=== PATIENT | male | born 2005 | race Caucasian/White ===

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

== ENCOUNTER 2023-04-07 12:35 | Emergency (ER) | payer OTHER, SELFPAY ==
--- NOTE | ~2023-04-07 | CT_ITS ---
EXAMINATION: CT abdomen pelvis w con DATE: 04/07/2023 14:15 INDICATION: Right upper quadrant pain status post trauma. TECHNIQUE: Computed tomography (CT) of the abdomen and pelvis was performed with 100 cc Omnipaque 350 intravenous contrast. The dose-length product was 261.47 mGy-cm. Automated exposure control and iter ative reconstruction technique were employed. COMPARISON: None. FINDINGS: Lung bases are unremarkable. Heart size normal. No significant pleural or pericardial effus ion. The liver, spleen, pancreas, adrenal glands and kidneys are unremarkable. No bladder is present. No significant vascular abnormality. There is a retroaortic left renal vein. No evidence for aortic aneurysm or dissection. Nonobstructive bowel gas pattern. No evidence for appendicitis. Small amount of free fluid in the pelvis. Gallbladder is present. No free air. No acute osseous abnormality. IMPRESSION: 1. No acute abdominal abnormality. Reviewed, dictated and finalized at location A. [employer] IN[employer]GR[employer]
[2023-04-07 12:42] VITALS: BP 134/56; PULSE 92; RESP 17; TEMP 36.7; O2SAT 100
[2023-04-07 12:55] LABS: Basophils Percent Auto 0.3 % (0.2-1.2); Eosinophils Absolute Auto 0.1 K/mm3 (0-0.3); Eosinophils Percent Auto 0.9 % (0-4.4); Hematocrit 45.3 % (42.0-52.0); Hemoglobin 14.8 g/dL (14.0-18.0); Immature Granulocyte Absolute 0.02 K/mm3 (0.00-0.031); Immature Granulocyte Percent A 0.2 % (0-0.5); Lymphocytes Absolute Auto 2.71 K/mm3 (0.9-3.2); Lymphocytes Percent Auto 28.9 % (18.3-44.2); Mean Corpuscular HGB Conc 32.7 g/dl (32-36); Mean Corpuscular Hemoglobin 28.3 pg (26-34); Mean Corpuscular Volume 86.6 fl (80-100); Mean Platelet Volume 10.6 fl (7.4-10.4); Monocytes Absolute Auto 0.9 K/mm3 (0.1-0.6); Neutrophils Absolute Auto 5.6 K/mm3 (1.3-6.7); Neutrophils Percent Auto 59.7 % (45.5-73.1); Platelet Count Result 242 k/mm3 (150-375); Red Blood Count 5.23 M/mm3 (4.6-6.20); Red Cell Distribution Width 13.1 % (11.5-14.5); White Blood Count 9.4 K/mm3 (4.5-10.0)
[2023-04-07 12:57] LABS: Appearance Urine Clear (Clear); Bilirubin Urine Negative (Negative); Blood Urine Negative (Negative); Color Urine Yellow (Yellow); Glucose Urine UA Negative (Negative); Ketones Urine Negative (Negative); Leukocyte Esterase Ur Negative LEU/UL (Negative); Nitrate Urine Negative (Negative); Protein Urine Negative (Negative); Urobilinogen Urine 0.2 mg/dL (<2.0); pH Urine 7.5 (5.0-9.0)
[2023-04-07 12:59] LABS: Add Urine Microscopic? NO
[2023-04-07 13:07] LABS: Alanine Aminotransferase 11 U/L (6-50); Albumin Level 4.5 g/dL (3.7-5.6); Alkaline Phosphatase 80 U/L (58-237); Anion Gap 9 mmol/L (8-16); Aspartate Amino Transferase 18 U/L (17-59); Bilirubin,Total 0.5 mg/dL (0.2-1.3); Blood Urea Nitrogen 8 mg/dL (8-21); Calcium 9.3 mg/dL (8.9-10.7); Carbon Dioxide 28 mmol/L (22-30); Chloride 102 mmol/L (98-107); Estimated CRCL calculation 124 ml/min; Estimated Glomerular Filt Rate > 60; Glucose 106 mg/dL (65-110); Lipase 55 U/L (23-300); Potassium 4.1 mmol/L (3.4-5.0); Sodium 139 mmol/L (134-143)
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
[2023-04-07 15:23] VITALS: BP 129/62; PULSE 82; RESP 18; TEMP 36.7; O2SAT 99
== END 2023-04-07 15:24 | disposition home or self-care (01) ==
PROVIDERS: Emergency Provider Emergency Medicine
DX: R10.11 Right upper quadrant pain (principal); V44.6XXA Car passenger injured in collision with heavy transport vehicle or bus in traffic accident, initial encounter
CPT/HCPCS: 36415; 74177; 80053; 81003; 83690; 85025; 99284; Q9967

== ENCOUNTER 2024-09-04 18:17 | Emergency (ER) | payer OTHER, SELFPAY ==
[2024-09-04 18:29] VITALS: BP 126/66; PULSE 90; RESP 20; TEMP 37.6; O2SAT 99
--- NOTE | 2024-09-04 18:32 | ED_ITS ---
HPI - Wound/Laceration General Chief Complaint: Wound/Laceration Stated Complaint: Head Injury Time Seen by Provider: 09/04/24 18:45 Source: patient and RN notes reviewed Mode of arrival: ambulatory Limitations: no limitations History of Present Illness HPI narrative: 18-year-old male presents with concern for laceration to scalp. Reports 45 minutes prior to arrival he was moving plywood downstairs any hit his head on the short wall that is above the stairs. He denies any loss of consciousness, vomiting. He reports headache. Related Data Allergies Allergy/AdvReac Type Severity Reaction Status Date / Time No Known Allergies Allergy Verified 09/04/24 18:18 Review of Systems Review of Systems: CONSTITUTIONAL: Denies malaise, chills, sweats, or fever. SKIN: Reports laceration to the scalp MUSCULOSKELETAL: Denies muscle skeletal pain NEUROLOGIC: Denies numbness, weakness All systems reviewed & are unremarkable except as noted in HPI and below PMFSH Past Medical History Medical History (Updated 09/04/24 @ 18:57 by Jenny Martin NP) Healthy adult male Surgical History Surgical History (Updated 04/07/23 @ 21:58 by Claudio Darby MD) No history of previous surgery Comments At time of signature, agree with nursing past medical, surgical, social and family history. There is no relevant family history pertinent to the presenting complaint Exam Narrative: GENERAL: Well-appearing, well-nourished, and in no acute distress. HEAD: Normocephalic EYES: PERRLA, conjunctivae clear NECK: Supple. CHEST: Speaks in full sentences. No respiratory distress. HEART: Regular rate and rhythm. Normal and equal peripheral pulses. EXTREMITIES: Right/Left hand and digits of hand have normal strength and sensation. 5/5 strength with digit flexion, extension. Range of motion normal. No clubbing, cyanosis, or edema noted. No tenderness. Skin intact. Normal digital cascade with flexion of fingers, median, ulnar and radial nerve intact. Normal sensation of each side of finger. Can perform 'okay' sign, 'cross over finger test of index and middle fingers' and 'thumbs up' sign. No scissoring. Normal thumb opposition. Good capillary refill and radial pulse. Distal capillary refill less than 3 seconds. Patient is right/left hand dominant SKIN: Warn, dry, intact, pink. No rash NEURO: Alert and oriented x3. PSYCH: Normal mood and affect Course Course Emergency Course: Patient is aware of diagnosis, understands and agrees to treatment plan. Anticipatory guidance given. Patient agrees to follow-up as directed and is aware of reasons to seek care at the emergency department. Portions of this record may have been created with voice recognition software Level of Care: Express Care Visit Vital Signs Vital signs: Vital Signs Temperature 99.6 F 09/04/24 18:29 Pulse Rate 90 09/04/24 18:29 Respiratory Rate 20 09/04/24 18:29 Blood Pressure 126/66 09/04/24 18:29 Pulse Oximetry 99 09/04/24 18:29 Oxygen Delivery Room Air 09/04/24 18:29 Temperature 99.6 F 09/04/24 18:29 Pulse Rate 90 09/04/24 18:29 Respiratory Rate 20 09/04/24 18:29 Blood Pressure 126/66 09/04/24 18:29 Pulse Oximetry 99 09/04/24 18:29 Oxygen Delivery Room Air 09/04/24 18:29 Reviewed. Procedures Laceration Laceration 1: Date: 09/04/24 Time: 18:50 Site: scalp Description: linear Depth: simple, single layer ====== Skin Level ====== Skin layer closed with: dermabond ====== Subcutaneous Layer ====== ====== Muscle Layer ====== ====== Tendon Layer ====== MDM - Wound/Laceration MDM Narrative Medical decision making narrative: Wound explored for foreign body and copious irrigation provided with no evidence of FB. Discussed the potential of retained foreign body with the patient and signs/symptoms that should prompt the patient to immediately go to the ED for reevaluation. There was hair in the scalp (it was the and of hair strands that were still attached to the scalp) that wound which was removed with tweezers. No other foreign body was noted. Anticipatory guidance was provided. Tetanus prophylaxis was given Differential Diagnosis Differential diagnosis: Likely laceration, abrasion and avulsion of skin Critical Care Time Critical Care Time Critical Care Time: No Discharge Plan Discharge Clinical Impression: Laceration Patient Disposition: Home Condition: Stable Instructions: Head Laceration (ED) Additional Instructions: Skin adhesive care: -adhesive works like a bandage; do not use antibiotic ointment as it can break down the adhesive -You can shower while the adhesive is on your skin, but do not take a bath or soak or scrub the area for 7-10 days. Dry your skin by patting it gently with a towel. -The adhesive will peel off on its own; usually by 5-10days. If after 10 days, you still have adhesive on you, you can use antibiotic ointment or petroleum jelly to get it off. After you heal, you should protect the scar from the sun. Use sunscreen on the area or wear clothes or a hat that covers the scar. Follow up with your PCP as needed If you have any worsening of symptoms, redness, swelling, fever, or drainage, or any other concerns please follow up with your PCP or go to the ED immediately. Take Tylenol as needed for pain. If you have any episodes of vomiting, dizziness or other urgent concerns please go to the emergency room. Patient Language: Lao Follow-up/Referrals: PHYSICIAN,[employer] SUPERVISOR [Primary Care Provider] - Stand Alone Forms: Work/School Release IP Time of Disposition: 18:57
[2024-09-04] MEDS: TETANUS,DIPHTHERIA,AC PERTUSSIS ADULT (0.5 ML) BOOSTRIX IM (19:12)
== END 2024-09-04 19:05 | disposition home or self-care (01) ==
PROVIDERS: Emergency Provider Nurse Practitioner
DX: S01.01XA Laceration without foreign body of scalp, initial encounter (principal); W22.09XA Striking against other stationary object, initial encounter; Z23 Encounter for immunization
CPT/HCPCS: 12001; 90471; 90715; 99212; G0463

== ENCOUNTER 2024-09-27 18:25 | Emergency (ER) | payer OTHER, SELFPAY ==
--- NOTE | 2024-09-27 18:27 | ED_ITS ---
HPI - Wound/Laceration General Chief Complaint: Wound/Laceration Stated Complaint: glue on scalp Time Seen by Provider: 09/27/24 18:29 Source: patient, RN notes reviewed and old records reviewed Mode of arrival: ambulatory Limitations: no limitations History of Present Illness HPI narrative: [facility] that there is still glue in his hair post scalp laceration, glued use. Scalp is well healed. Glue still left in his hair. Had been seen on September 04 Related Data Allergies Allergy/AdvReac Type Severity Reaction Status Date / Time No Known Allergies Allergy Verified 09/27/24 18:27 Review of Systems Review of Systems: All systems reviewed & are unremarkable except as noted in HPI and below Constitutional: Constitutional: Reports no additional constitutional complaints ENT: Reports system reviewed and no additional complaints, except as documented Cardiovascular: Cardiovascular: Reports no additional cardiovascular complaints, Denies chest pain and Denies dyspnea Respiratory: Respiratory: Reports no additional respiratory complaints, Denies chest congestion, Denies cough and Denies dyspnea Musculoskeletal: Musculoskeletal: Reports no additional musculoskeletal complaints Integumentary/Breasts: Skin/Breast: Reports as per HPI [facility] Past Medical History Medical History Healthy adult male Surgical History Surgical History No history of previous surgery Comments At the time of my signature, I reviewed and agree with the nursing past medical, surgical, social, and family history. There is no relevant family history pertinent to the patient complaint. Exam Const: General: cooperative, healthy appearing, comfortable, no acute distress, well developed, alert, poor hygiene and well nourished; No well groomed Nutritional Appearance: well nourished Orientation/consciousness: patient oriented x3 Limitations: no limitations HENMT: Head: normal to inspection Eyes: General: appearance normal, both eyes and all related structures Alignment and Position: alignment normal Neck: Neck: normal visual inspection, full ROM, no lymphadenopathy and no me ningeal signs Chest: Chest palpation & inspection: normal inspection of the chest Resp: Effort & Inspection: normal respiratory effort and able to speak in complete sentences Cardio: Rate: regular rate Skin: General skin exam: normal color and no rashes or lesions noted Other: Wound to the scalp is well healed. Glue just in hair. Discussed treatment using antibiotic ointment and showering. Neuro: General: patient oriented x3, gait normal, moves all extremities and no meningeal signs Cognition (Neuro): normal cognition Speech: normal speech Gait exam (Neuro): Normal gait present Extrem: General: normal to inspection, full ROM, capillary refill normal and normal gait Psych: Appearance: grossly normal and well kempt Mental Status: mental status grossly normal Speech and movement: Normal speech and movement present and Clear speech present Affect: normal affect Attitude: cooperative Course Course Level of Care: Express Care Visit Vital Signs Vital signs: Vital Signs Temperature 98.3 F 09/27/24 18:30 Pulse Rate 91 09/27/24 18:30 Respiratory Rate 12 09/27/24 18:30 Blood Pressure 130/67 09/27/24 18:30 Pulse Oximetry 98 09/27/24 18:30 Temperature 98.3 F 09/27/24 18:30 Pulse Rate 91 09/27/24 18:30 Respiratory Rate 12 09/27/24 18:30 Blood Pressure 130/67 09/27/24 18:30 Pulse Oximetry 98 09/27/24 18:30 Reviewed MDM - Wound/Laceration MDM Narrative Medical decision making narrative: Patient sitting in exam room patient is nontoxic, vitals are stable. Patient presents for glue stuck in his hair. Patient appropriate for outpatient treatment with close follow-up Requesting a work note for that he was seen today. Discharge instructions reviewed with patient, as well as provided in writing per nursing staff. The instructions also include specific and strict return/GO TO THE ER as well as f/u information. All questions have been answered, and the patient deny any further questions with discharge and discharge plan. Some parts of this dictation were generated by voice recognition software and may contain typographical and/or grammatical inaccuracies. Differential Diagnosis Differential diagnosis: Likely laceration, abscess, abrasion and avulsion of skin Critical Care Time Critical Care Time Critical Care Time: No Discharge Plan Discharge Clinical Impression: Visit for wound check Patient Disposition: Home Condition: Stable Instructions: Antibiotic Form, Skin Adhesive Care (ED), Acute Wounds (DC) Additional Instructions: Apply triple antibiotic, leave in, washout after 5 minutes. Do this daily until the skin glue dissolves Follow-up with primary care provider Patient Language: Malay Follow-up/Referrals: PHYSICIAN,CABLE ARMORER [Primary Care Provider] - Stand Alone Forms: Work/School Release IP Time of Disposition: 18:33
[2024-09-27 18:30] VITALS: BP 130/67; PULSE 91; RESP 12; TEMP 36.8; O2SAT 98
== END 2024-09-27 18:38 | disposition home or self-care (01) ==
PROVIDERS: Emergency Provider Nurse Practitioner
DX: Z48.00 Encounter for change or removal of nonsurgical wound dressing (principal)
CPT/HCPCS: 99211; G0463

== ENCOUNTER 2024-11-04 17:23 | Emergency (ER) | payer SELFPAY ==
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
[2024-11-04 17:30] VITALS: BP 116/69; PULSE 97; RESP 18; TEMP 37.5; O2SAT 100
== END 2024-11-04 18:40 | disposition home or self-care (01) ==
PROVIDERS: Emergency Provider Registered Nurse
DX: S11.91XA Laceration without foreign body of unspecified part of neck, initial encounter (principal); W27.2XXA Contact with scissors, initial encounter; L23.7 Allergic contact dermatitis due to plants, except food
CPT/HCPCS: 70360; 99213; G0463